=== PATIENT | male | born 1950 | race Caucasian/White ===

== ENCOUNTER 2016-07-15 15:32 | Emergency (ER) | payer MEDICARE, OTHER ==
[2016-07-15] MEDS ORDERED: LIDOCAINE URO-JET JELLY 2% 5 ML KIT URETHRAL ONE (17:28)
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
[2016-07-15 19:52] VITALS: RESP 18
[2016-07-15] MEDS ORDERED: cefTRIAXone 2,000 MG VIAL IM STA (20:50)
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
--- NOTE | 2016-07-15 20:59 | P.PCN ---
Date of Procedure: 07/15/16 Preoperative Diagnosis: Urine retention inability to pass catheter Postoperative Diagnosis: Same secondary to dense distal bulbar urethral stricture Procedure(s) Performed: Ddilation of urethral stricture with filiforms and followers, difficult catheter placement Description of Procedure: The patient is prepped and draped sterilely. I first attempted pass a 16- Italian coud-tip catheter thinking there is going to be a false passage however I meet resistance in the proximal penile urethra and the distal bulbar urethra. I thus passed a 3-Italian spiral filiform through the stricture. I then dilate the stricture from 64-05-Irctrg. The strictures very dense and somewhat long. I attempted to pass a 16 to coud-tip catheter but failed. I then pass a 14-Italian regular catheter with some difficulty but unable to get into the bladder. After remaining placed. Marycarmen discussed with a director of operations home health that it shouldn't be changed for 3-4 weeks. He should keep his follow-up appointment in our office. He will get a shot of gentamicin prior to discharge.
[2016-07-15] MEDS ORDERED: GENTAMICIN 120 MG in SODIUM CHLORIDE 0.9% 100 ML IVPB ONE (21:00)
[2016-07-15 21:15] LABS: Amorphous Sediment,Urine Rare /hpf; Appearance,Urine Cloudy (Clear); Bilirubin,Urine Negative (Negative); Glucose,Urine (UA) Negative (Negative); Ketones,Urine Negative (Negative); Leukocyte Esterase,Urine Large (Negative); Nitrite,Urine Positive (Negative); Particle Count 70206; Protein,Urine 1+ (Negative); RBC,Urine 98 /hpf (0-5); Specific Gravity,Urine 1.009 (1.001-1.035); UA Billing (MACRO vs. MICRO) MICRO; Urobilinogen,Urine <2.0 mg/dL (<2.0); WBC,Urine 6 /hpf (0-5)
[2016-07-15 23:03] VITALS: BP 113/57; PULSE 61; TEMP 97.1
== END 2016-07-15 23:20 | disposition home or self-care (01) ==
LOC: EC 15:32
DX: N35.9 Urethral stricture, unspecified (principal); R33.9 Retention of urine, unspecified; M19.90 Unspecified osteoarthritis, unspecified site; F41.9 Anxiety disorder, unspecified; F32.9 Major depressive disorder, single episode, unspecified; Z88.0 Allergy status to penicillin; G40.909 Epilepsy, unspecified, not intractable, without status epilepticus; Z79.82 Long term (current) use of aspirin; Z87.820 Personal history of traumatic brain injury; Z85.828 Personal history of other malignant neoplasm of skin; Z79.899 Other long term (current) drug therapy; F17.200 Nicotine dependence, unspecified, uncomplicated; Z46.6 Encounter for fitting and adjustment of urinary device
CPT/HCPCS: 51703 ×2; 96365 ×2; 99285 ×2; 81001; 87086; 87077; 87186; J1580

== ENCOUNTER 2016-12-15 21:34 | Emergency (ER) | payer MEDICARE, OTHER ==
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
[2016-12-15 22:54] LABS: Appearance,Urine Turbid (Clear); Bacteria,Urine Many /hpf; Bilirubin,Urine Negative (Negative); Glucose,Urine (UA) Negative (Negative); Ketones,Urine Negative (Negative); Leukocyte Esterase,Urine Large (Negative); Nitrite,Urine Negative (Negative); Particle Count 437380; Protein,Urine 4+ (Negative); RBC,Urine 67 /hpf (0-5); Specific Gravity,Urine 1.014 (1.001-1.035); UA Billing (MACRO vs. MICRO) MICRO; Urobilinogen,Urine <2.0 mg/dL (<2.0); WBC,Urine >182 /hpf (0-5)
[2016-12-15 23:47] VITALS: BP 124/78
[2016-12-16 00:02] VITALS: PULSE 80; RESP 16; TEMP 98
== END 2016-12-16 00:02 | disposition home or self-care (01) ==
LOC: EC 21:34
DX: T83.511A Infection and inflammatory reaction due to indwelling urethral catheter, initial encounter (principal); N39.0 Urinary tract infection, site not specified; M19.90 Unspecified osteoarthritis, unspecified site; G40.909 Epilepsy, unspecified, not intractable, without status epilepticus; F32.9 Major depressive disorder, single episode, unspecified; F17.200 Nicotine dependence, unspecified, uncomplicated; Z85.828 Personal history of other malignant neoplasm of skin; Z88.0 Allergy status to penicillin; Z79.1 Long term (current) use of non-steroidal anti-inflammatories (NSAID); Z79.82 Long term (current) use of aspirin; Z79.899 Other long term (current) drug therapy
CPT/HCPCS: 51702; 81001; 87077; 87086; 87186; 99283

== ENCOUNTER 2017-02-07 09:08 | Day surgery (SDC) | payer MEDICARE, OTHER ==
[2017-01-26 13:08] VITALS: BMI 59.3
[~2017-02-07 09:08] MED LIST: DEXAMETHASONE SOD PHOSPHATE 10 MG/ML 1 ML VIAL IV ONE; GENTAMICIN 120 MG in SODIUM CHLORIDE 0.9% 100 ML IVPB ONE; HYDROmorphone 1 MG/ML 1 ML SYRINGE IVP PRN; LACTATED RINGERS 1,000 ML IV SCH; LIDOCAINE 1% 20 ML VIAL (10MG/ML) FOR IV START INTRADERMA PRN; ONDANSETRON 4 MG/2 ML VIAL IVP ONE; SCOPOLAMINE 1.5MG/72HR PATCH TRANSDERM ONE
[2017-02-07 10:22] VITALS: RESP 16
[2017-02-07] MEDS ORDERED: PHENYLEPHRINE-0.9% NACL SYG 1 MG/10 ML SYRINGE ONE (11:25)
[2017-02-07] MEDS ORDERED: PROPOFOL 10 MG/ML 20 ML VIAL IV ONE (11:25)
[2017-02-07] MEDS ORDERED: MIDAZOLAM 2 MG/2 ML VIAL ONE (11:25)
[2017-02-07] MEDS ORDERED: LIDOCAINE 1% INJ 10MG/ML (20 ML MDV) ONE (11:25)
--- NOTE | 2017-02-07 12:24 | P.OP ---
Date of Procedure: 02/07/17 Preoperative Diagnosis: Postoperative Diagnosis: Chronic urinary retention with catheter difficulties Procedure(s) Performed: Same plus multiple bladder stones Implants: Anesthesia: MASSIMO Surgeon: Tylor Feliciano Estimated Blood Loss (ml): 0 Pathology: other Condition: stable Disposition: PACU Indications for Procedure: The patient is a 66-year-old head injury patient with a chronic indwelling catheter due to a neurogenic bladder. The nursing staff has chronic problems replacing this due to previous catheter placement with the balloon in the prostatic urethra. The catheter doesn't drain well he gets recurrent infections. He comes for a suprapubic tube Operative Findings: Description of Procedure: Note brought to the operating suite he is given a general anesthesia. It is obvious that the catheter is pulled out of the outer. The bladder is distended. I removed the catheter. A large amount of urine drains out. The patient remains in retention. His lithotomy position after successful general anesthesia with a sterile prep and drape. Under direct vision the 22-C[place]ican sheath and Foroblique lenses introduced in the anterior urethra it is normal. The prostatic urethra is dilated from previous balloon dilations of the prostatic urethra. There stone in it. The stone was pushed back into the bladder. The bladder is hypotonic sloppy with chronic cystitis. There are multiple bladder stones that are irrigated out of the bladder. The remaining stones or grasp and broken with the cup biopsy forceps and irrigated out of the bladder. If I then pass the 20-C[place]ican sound, notched and it is tender to the anterior bladder wall. A small incision with a 15 blade is made over the sound and the sound is popped through the anterior bladder wall. An 18-C[place]ican Boss catheter secured to the sound with a 2-0 silk. The catheters pulled back through the bladder into the urethra. I then pass the cystoscope into the urethra and follow the catheter back in the bladder. The balloon is insufflated in the bladder under direct vision. The bladder irrigates nicely. It is secured to the skin with 2 2-0 Vicryl's. Stress the patient awake and returned recovery in good condition. He'll be discharged back to the shelter later today.
[2017-02-07 12:44] VITALS: TEMP 97.1
[2017-02-07 16:06] VITALS: BP 1187/75; PULSE 88
== END 2017-02-07 17:24 ==
LOC: OR 09:08
PROVIDERS: ATTEND Urology
DX: T83.018A Breakdown (mechanical) of other urinary catheter, initial encounter (principal); N31.8 Other neuromuscular dysfunction of bladder; N39.498 Other specified urinary incontinence; N21.0 Calculus in bladder; N31.2 Flaccid neuropathic bladder, not elsewhere classified; N30.20 Other chronic cystitis without hematuria
CPT/HCPCS: 82365; 52310; C2627; J2250; J1100; J2405; J2001; J1580; J2370; J2704

== ENCOUNTER 2017-03-03 10:48 | Emergency (ER) | payer MEDICARE, OTHER ==
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
[2017-03-03 14:27] VITALS: RESP 16
[2017-03-03 14:40] LABS: Appearance,Urine Cloudy (Clear); Bacteria,Urine Moderate /hpf; Bilirubin,Urine Negative (Negative); Glucose,Urine (UA) Negative (Negative); Ketones,Urine Negative (Negative); Leukocyte Esterase,Urine Large (Negative); Mucus,Urine Rare /hpf; Nitrite,Urine Positive (Negative); PH, Urine 7.5 (5.0-8.0); Particle Count 104625; Protein,Urine Trace (Negative); RBC,Urine 37 /hpf (0-5); Specific Gravity,Urine 1.008 (1.001-1.035); Squamous Epithelial Cell,Urine <1 /hpf (0-4); UA Billing (MACRO vs. MICRO) MICRO; Urobilinogen,Urine <2.0 mg/dL (<2.0); WBC,Urine 78 /hpf (0-5)
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
[2017-03-03 15:19] VITALS: BP 117/64; PULSE 66; TEMP 98.6
== END 2017-03-03 16:13 | disposition home or self-care (01) ==
LOC: EC 10:48
DX: T83.098A Other mechanical complication of other urinary catheter, initial encounter (principal); G40.909 Epilepsy, unspecified, not intractable, without status epilepticus; M19.90 Unspecified osteoarthritis, unspecified site; F41.9 Anxiety disorder, unspecified; F32.9 Major depressive disorder, single episode, unspecified; F17.200 Nicotine dependence, unspecified, uncomplicated; Z85.828 Personal history of other malignant neoplasm of skin; Z79.82 Long term (current) use of aspirin; Z79.899 Other long term (current) drug therapy; Z88.0 Allergy status to penicillin; Y84.6 Urinary catheterization as the cause of abnormal reaction of the patient, or of later complication, without mention of misadventure at the time of the procedure
CPT/HCPCS: 51702; 51798; 81001; 99283

== ENCOUNTER 2017-06-22 15:27 | Emergency (ER) | payer MEDICARE, OTHER ==
[2017-06-22 15:58] VITALS: RESP 16
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
[2017-06-22 17:27] LABS: Basophils # (A) 0.1 k/uL (0-0.2); Basophils % (A) 1 %; Eosinophils # (A) 0.4 k/uL (0-0.7); Eosinophils % (A) 5 %; HCT 38.9 % (39.0-53.0); HGB 12.1 gm/dL (13.0-17.5); Lymphocytes % (A) 37 %; MCH 26.4 pg (25.0-35.0); MCHC 31.1 g/dL (31.0-37.0); MCV 84.9 fL (80.0-100.0); Mean Platelet Volume 7.4; Monocytes # (A) 0.3 k/uL (0-1.0); Monocytes % (A) 4 %; Neutrophils # (A) 4.2 k/uL (1.3-7.7); Neutrophils % (A) 51 %; Platelet Count 256 k/uL (150-450); RBC 4.58 m/uL (4.30-5.90); RDW 14.8 % (11.5-15.5); WBC 8.1 k/uL (3.8-10.6)
[2017-06-22 17:35] LABS: Appearance,Urine Clear (Clear); Bilirubin,Urine Negative (Negative); Blood,Urine Moderate (Negative); Color,Urine Yellow; Glucose,Urine (UA) Negative (Negative); Ketones,Urine Negative (Negative); Leukocyte Esterase,Urine Moderate (Negative); Mucus,Urine Rare /hpf; Nitrite,Urine Negative (Negative); PH, Urine 6.5 (5.0-8.0); Protein,Urine Negative (Negative); RBC,Urine 39 /hpf (0-5); Squamous Epithelial Cell,Urine <1 /hpf (0-4); Urobilinogen,Urine <2.0 mg/dL (<2.0); WBC,Urine 7 /hpf (0-5)
[2017-06-22 17:37] LABS: ALT 55 U/L (21-72); AST 32 U/L (17-59); Alkaline Phosphatase 88 U/L (38-126); Anion Gap 8 mmol/L; Blood Urea Nitrogen 20 mg/dL (9-20); Calcium 9.4 mg/dL (8.4-10.2); Carbon Dioxide 23 mmol/L (22-30); Chloride 108 mmol/L (98-107); Glucose 97 mg/dL (74-99); Potassium 4.2 mmol/L (3.5-5.1); Sodium 139 mmol/L (137-145); Total Bilirubin 0.1 mg/dL (0.2-1.3); Total Protein 6.6 g/dL (6.3-8.2)
[2017-06-22 18:14] LABS: Prothrombin Time 9.7 sec (9.0-12.0)
[2017-06-22 18:48] VITALS: BP 131/56; PULSE 70; TEMP 97.5
== END 2017-06-22 18:48 | disposition home or self-care (01) ==
LOC: EC 15:27
DX: R31.9 Hematuria, unspecified (principal); G40.909 Epilepsy, unspecified, not intractable, without status epilepticus; M19.90 Unspecified osteoarthritis, unspecified site; F32.9 Major depressive disorder, single episode, unspecified; F41.9 Anxiety disorder, unspecified; F17.200 Nicotine dependence, unspecified, uncomplicated; Z79.1 Long term (current) use of non-steroidal anti-inflammatories (NSAID); Z79.82 Long term (current) use of aspirin; Z79.899 Other long term (current) drug therapy; Z88.0 Allergy status to penicillin; Z80.51 Family history of malignant neoplasm of kidney
CPT/HCPCS: 36415; 80053; 81001; 83880; 85025; 85610; 85730; 99283

== ENCOUNTER 2017-07-01 23:23 | Emergency (ER) | payer MEDICARE, OTHER ==
[2017-07-01 23:30] VITALS: RESP 18
[2017-07-01] MEDS ORDERED: RX INFO: IV CONTRAST WAS GIVEN 1 EACH MISC MISCELLANE PRN (23:43)
[2017-07-02] LABS: Basophils # (A) 0.1 k/uL (0-0.2); Basophils % (A) 1 %; Eosinophils # (A) 0.5 k/uL (0-0.7); Eosinophils % (A) 5 %; HCT 34.3 % (39.0-53.0); HGB 10.5 gm/dL (13.0-17.5); Lymphocytes % (A) 34 %; MCH 26.2 pg (25.0-35.0); MCHC 30.6 g/dL (31.0-37.0); MCV 85.5 fL (80.0-100.0); Mean Platelet Volume 8.2; Monocytes # (A) 0.5 k/uL (0-1.0); Monocytes % (A) 5 %; Neutrophils # (A) 4.6 k/uL (1.3-7.7); Neutrophils % (A) 52 %; Platelet Count 198 k/uL (150-450); RBC 4.01 m/uL (4.30-5.90); WBC 8.7 k/uL (3.8-10.6)
[2017-07-02 00:10] LABS: Anion Gap 9 mmol/L; Blood Urea Nitrogen 16 mg/dL (9-20); Calcium 8.9 mg/dL (8.4-10.2); Carbon Dioxide 23 mmol/L (22-30); Chloride 109 mmol/L (98-107); Glucose 108 mg/dL (74-99); Sodium 141 mmol/L (137-145)
[2017-07-02 00:11] LABS: Partial Thromboplastin Time 26.8 sec (22.0-30.0); Prothrombin Time 9.6 sec (9.0-12.0)
[2017-07-02 00:18] LABS: Bacteria,Urine Few /hpf; Mucus,Urine Moderate /hpf; RBC,Urine >182 /hpf (0-5); WBC,Urine >182 /hpf (0-5)
--- NOTE | 2017-07-02 00:20 | CT ---
EXAMINATION TYPE: CT abdomen pelvis w con DATE OF EXAM: 07/02/2017 COMPARISON: NONE HISTORY: NO prior, pt poor historian, gross hematuria seen in catheter, IV only CT DLP: 863.10 mGycm Automated exposure control for dose reduction was used. TECHNIQUE: Helical acquisition of images was performed from the lung bases through the pelvis. CONTRAST: Performed without Oral Contrast and with IV Contrast, patient injected with 100 mL of Omnipaque 300. FINDINGS: Lung bases are clear. There is no pleural effusion. Heart size is normal. Liver spleen pancreas gallbladder appear normal. Bile ducts are not dilated. There is no adrenal mass . Kidneys show satisfactory contrast opacification. There is no hydronephrosis. There is no retroperitoneal adenopathy. There is no ascites. There is a suprapubic catheter in the bl adder noted. There is high density around the Boss balloon and this could relate to blood clot in th e urinary bladder. There is no free fluid. I see no intestinal wall thickening. There are no dilated loops. Appendix appears normal. There is a 4.3 cm fusiform lower abdominal aortic aneurysm extending to the common iliac arteries. Th ere is atherosclerotic vascular calcification. There is 30% anterior wedging of L1 vertebral body. There is hypertrophic facet arthropathy and moder ately severe spinal stenosis at L4-5. IMPRESSION: 4.3 CM LOWER ABDOMINAL AORTIC ANEURYSM. 1 CM RIGHT RENAL CORTICAL CYST. NORMAL APPENDIX. NO SIGN OF ACUTE ABDOMEN AND PELVIS. L1 COMPRESSION FRACTURE OF UNCERTAIN AGE. There is moderate L4-5 bony spinal stenosis. There is a suprapubic catheter noted. Bladder is not well evaluated because of lack of contrast. Ther e is relatively high density surrounding the Boss balloon and this could relate to blood clot within the urinary bladder.
[2017-07-02 00:28] LABS: Appearance,Urine Bloody (Clear); Color,Urine Red
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
[2017-07-02 01:04] VITALS: BP 117/67; PULSE 88; TEMP 98.5
== END 2017-07-02 01:27 | disposition home or self-care (01) ==
LOC: EC 23:23
DX: R31.9 Hematuria, unspecified (principal); M19.90 Unspecified osteoarthritis, unspecified site; F41.9 Anxiety disorder, unspecified; F32.9 Major depressive disorder, single episode, unspecified; F17.200 Nicotine dependence, unspecified, uncomplicated; Z86.69 Personal history of other diseases of the nervous system and sense organs; Z85.828 Personal history of other malignant neoplasm of skin; Z79.82 Long term (current) use of aspirin; Z79.1 Long term (current) use of non-steroidal anti-inflammatories (NSAID); Z79.899 Other long term (current) drug therapy; Z88.0 Allergy status to penicillin
CPT/HCPCS: 36415; 80048; 85025; 85610; 85730; 81001; 74177; 99284; Q9967

== ENCOUNTER 2018-02-13 17:33 | Inpatient (IN) | payer OTHER, MEDICARE ==
[2018-02-13] MEDS ORDERED: SODIUM CHLORIDE 0.9% 1,000 ML IV STA (19:13)
[2018-02-13 20:01] LABS: Basophils % (A) 0 %; Eosinophils # (A) 0.3 k/uL (0-0.7); Eosinophils % (A) 1 %; HCT 37.5 % (39.0-53.0); Lymphocytes # (A) 1.2 k/uL (1.0-4.8); Lymphocytes % (A) 5 %; MCH 26.3 pg (25.0-35.0); Mean Platelet Volume 7.3; Monocytes # (A) 0.9 k/uL (0-1.0); Monocytes % (A) 4 %; Neutrophils # (A) 22.7 k/uL (1.3-7.7); Neutrophils % (A) 89 %; Platelet Count 184 k/uL (150-450); RBC 4.57 m/uL (4.30-5.90); RDW 15.2 % (11.5-15.5)
[2018-02-13 20:03] LABS: WBC 25.4 k/uL (3.8-10.6)
--- NOTE | 2018-02-13 20:11 | XR ---
EXAMINATION: XR chest 2V DATE AND TIME: 02/13/2018 7:38 PM CLINICAL INDICATION: abdominal pain TECHNIQUE: PA and lateral COMPARISON: 03/02/2016 FINDINGS: The lungs are clear. The pleural spaces are negative. The cardiac silhouette is mildly enlarged, unchanged. Aorta is tortuous, unchanged. The skeletal structures and soft tissues are negative for acute findings. IMPRESSION: NO ACUTE PROCESS.
[2018-02-13 20:13] LABS: ALT 39 U/L (21-72); AST 24 U/L (17-59); Albumin 3.9 g/dL (3.5-5.0); Alkaline Phosphatase 109 U/L (38-126); Amylase 41 U/L (30-110); Anion Gap 12 mmol/L; Blood Urea Nitrogen 15 mg/dL (9-20); Carbon Dioxide 19 mmol/L (22-30); Chloride 107 mmol/L (98-107); Glucose 119 mg/dL (74-99); Lipase 27 U/L (23-300); Potassium 3.6 mmol/L (3.5-5.1); Sodium 138 mmol/L (137-145); Total Bilirubin 0.6 mg/dL (0.2-1.3); Total Protein 6.7 g/dL (6.3-8.2)
[2018-02-13] MEDS ORDERED: cefTRIAXone 2,000 MG in SODIUM CHLORIDE 0.9% 100 ML IVPB STA (20:17)
[2018-02-13] MEDS ORDERED: VANCOMYCIN IV PER PHARMACY 1 EACH MISC MISCELLANE PRN (20:18)
[2018-02-13] MEDS ORDERED: cefTRIAXone IN SWFI 2,000 MG/20 ML SYRINGE IVP STA (20:20)
[2018-02-13] MEDS ORDERED: VANCOMYCIN 1,750 MG in SODIUM CHLORIDE 0.9% 500 ML IVPB ONE (20:30)
[2018-02-13 20:52] LABS: Appearance,Urine Turbid (Clear); Bacteria,Urine Occasional /hpf; Bilirubin,Urine Negative (Negative); Blood,Urine Negative (Negative); Budding Yeast,Urine Few /hpf; Calcium Oxalate Crystals,Urine Few /hpf; Color,Urine Yellow; Glucose,Urine (UA) Negative (Negative); Ketones,Urine 2+ (Negative); Leukocyte Esterase,Urine Large (Negative); Mucus,Urine Many /hpf; Nitrite,Urine Positive (Negative); PH, Urine 7.5 (5.0-8.0); Protein,Urine 2+ (Negative); RBC,Urine 18 /hpf (0-5); Specific Gravity,Urine 1.018 (1.001-1.035); Squamous Epithelial Cell,Urine 2 /hpf (0-4); Urobilinogen,Urine <2.0 mg/dL (<2.0); WBC,Urine 81 /hpf (0-5)
[2018-02-13] MEDS ORDERED: ONDANSETRON 4 MG/2 ML VIAL IVP PRN (21:20)
[2018-02-13] MEDS ORDERED: ACETAMINOPHEN TAB 325 MG TAB PO PRN ×2 (21:20→21:31)
[2018-02-13] MEDS ORDERED: NALOXONE 0.4 MG/ML 1 ML VIAL IV PRN (21:20)
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
[2018-02-13] MEDS ORDERED: MAGNESIUM HYDROXIDE 2,400 MG/10 ML CUP PO PRN (21:31)
[2018-02-13] MEDS ORDERED: guaiFENesin-DM 100-10MG/5ML 10 ML CUP PO PRN (21:31)
[2018-02-13] MEDS ORDERED: diphenhydrAMINE 25 MG CAP PO PRN (21:31)
--- NOTE | 2018-02-13 22:10 | US ---
EXAMINATION TYPE: US scrotum with doppler. Grayscale and color Doppler Duplex imaging performed of t he scrotum. DATE OF EXAM: 02/13/2018 COMPARISON: NONE CLINICAL HISTORY: Pain. Left testicle swelling and pain. EXAM MEASUREMENTS: TESTICLES: Right Testicle: 4.9 x 1.8 x 3.1 cm Left Testicle: 4.6 x 3.1 x 3.8 cm EPIDIDYMIS HEAD: Right Epididymis: 1.2 x .7 x 1.1 cm Left Epididymis: 2.4 x 3.9 x 3.8 cm Doppler performed to assess for testicular vascularity; good bilateral color flow and waveforms are s een. There is no evidence of testicular torsion. Presence of hydroceles: Yes loculated on the left side. Presence of varicoceles: No Heterogenous left testicle no definite masses seen. Complex loculated hydrocele left side. Enlarged l eft epididymis heterogenous with cyst measuring 2.0 x 2.8 x 3.1 cm. Good color flow seen bilaterally . IMPRESSION: No testicular torsion or mass. There is however abnormal heterogeneous sono density in th e left testicle that could relate to inflammatory process. Left side hydrocele and complex fluid. Enlarged left epididymis could relate to epididymitis.
[2018-02-13 22:59] VITALS: BMI 25.2
[2018-02-14] MEDS: clonazePAM 1 MG TAB PO SCH ×4 (01:10→20:49)
[2018-02-14] MEDS: PALIPERIDONE 3 MG TAB.ER.24 PO SCH ×3 (01:11→20:50)
[2018-02-14] MEDS: TOPIRAMATE 100 MG TAB PO SCH ×4 (01:11→20:50)
[2018-02-14] MEDS: traZODone HCL 50 MG TAB PO SCH ×2 (01:11→20:51)
[2018-02-14 07:38] LABS: Basophils # (A) 0.1 k/uL (0-0.2); Basophils % (A) 0 %; Eosinophils # (A) 0.2 k/uL (0-0.7); Eosinophils % (A) 1 %; HCT 32.5 % (39.0-53.0); HGB 10.3 gm/dL (13.0-17.5); Lymphocytes # (A) 1.2 k/uL (1.0-4.8); Lymphocytes % (A) 5 %; MCHC 31.6 g/dL (31.0-37.0); MCV 82.1 fL (80.0-100.0); Mean Platelet Volume 7.3; Monocytes # (A) 1.2 k/uL (0-1.0); Monocytes % (A) 6 %; Neutrophils # (A) 19.3 k/uL (1.3-7.7); Neutrophils % (A) 87 %; Platelet Count 166 k/uL (150-450); RBC 3.96 m/uL (4.30-5.90); WBC 22.1 k/uL (3.8-10.6)
[2018-02-14] MEDS ORDERED: MELOXICAM 7.5 MG TAB PO SCH (08:00)
[2018-02-14 08:01] LABS: ALT 28 U/L (21-72); AST 19 U/L (17-59); Albumin 2.8 g/dL (3.5-5.0); Alkaline Phosphatase 101 U/L (38-126); Anion Gap 8 mmol/L; Blood Urea Nitrogen 12 mg/dL (9-20); Calcium 8.3 mg/dL (8.4-10.2); Carbon Dioxide 18 mmol/L (22-30); Chloride 113 mmol/L (98-107); Glucose 104 mg/dL (74-99); Potassium 3.9 mmol/L (3.5-5.1); Sodium 139 mmol/L (137-145); Total Bilirubin 0.4 mg/dL (0.2-1.3); Total Protein 5.2 g/dL (6.3-8.2)
[2018-02-14] MEDS ORDERED: VANCOMYCIN 1,750 MG in SODIUM CHLORIDE 0.9% 500 ML IVPB SCH (09:00)
[2018-02-14] MEDS: NICOTINE 21MG/24HR PATCH TRANSDERM SCH (09:34)
[2018-02-14] MEDS: MELOXICAM 7.5 MG TAB PO SCH (09:34)
[2018-02-14] MEDS: PARoxetine 20 MG TAB PO SCH (09:36)
[2018-02-14] MEDS: LORATADINE 10 MG TAB PO SCH (09:36)
[2018-02-14] MEDS: GENTAMICIN 0.1% CREAM 15 GM TUBE TOPICAL SCH (09:37)
[2018-02-14] MEDS: CLOTRIMAZOLE 1% CREAM 15 GM TUBE TOPICAL SCH (09:37)
[2018-02-14] MEDS: SENNOSIDES-DOCUSATE SODIUM 1 EACH TAB PO SCH (09:37)
[2018-02-14] MEDS: ASPIRIN 81 MG PO SCH (09:37)
[2018-02-14] MEDS: BISACODYL 5 MG TABLET.DR PO SCH (09:37)
[2018-02-14] MEDS: LACOSAMIDE 50 MG TABLET PO SCH ×2 (13:42→20:49)
[2018-02-14] MEDS: SODIUM CHLORIDE 0.9% 1,000 ML IV SCH (17:15)
[2018-02-14] MEDS: LORazepam 1 MG TAB PO PRN (17:15)
[2018-02-14] MEDS: cefTRIAXone IN SWFI 1,000 MG/10 ML SYRINGE IVP SCH (17:15)
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
[2018-02-15] MEDS: NICOTINE 21MG/24HR PATCH TRANSDERM SCH (05:29)
[2018-02-15] MEDS: SODIUM CHLORIDE 0.9% 1,000 ML IV SCH ×3 (06:16→13:36)
[2018-02-15 08:38] LABS: MCH 26.3 pg (25.0-35.0); MCHC 32.1 g/dL (31.0-37.0); Mean Platelet Volume 7.4; Platelet Count 197 k/uL (150-450); RBC 3.78 m/uL (4.30-5.90); WBC 17.1 k/uL (3.8-10.6)
[2018-02-15] MEDS: CLOTRIMAZOLE 1% CREAM 15 GM TUBE TOPICAL SCH (08:53)
[2018-02-15] MEDS: GENTAMICIN 0.1% CREAM 15 GM TUBE TOPICAL SCH (08:53)
[2018-02-15] MEDS: PARoxetine 20 MG TAB PO SCH (08:54)
[2018-02-15] MEDS: LORATADINE 10 MG TAB PO SCH (08:54)
[2018-02-15] MEDS: TOPIRAMATE 100 MG TAB PO SCH ×3 (08:54→19:34)
[2018-02-15] MEDS: BISACODYL 5 MG TABLET.DR PO SCH (08:54)
[2018-02-15] MEDS: clonazePAM 1 MG TAB PO SCH ×3 (08:54→19:34)
[2018-02-15] MEDS: SENNOSIDES-DOCUSATE SODIUM 1 EACH TAB PO SCH (08:54)
[2018-02-15] MEDS: ASPIRIN 81 MG PO SCH (08:54)
[2018-02-15] MEDS: LACOSAMIDE 50 MG TABLET PO SCH ×2 (09:22→19:37)
[2018-02-15] MEDS: MELOXICAM 7.5 MG TAB PO SCH (09:22)
[2018-02-15] MEDS: cefTRIAXone IN SWFI 1,000 MG/10 ML SYRINGE IVP SCH (17:16)
[2018-02-15] MEDS: PALIPERIDONE 3 MG TAB.ER.24 PO SCH ×2 (17:16→19:35)
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
[2018-02-15] MEDS: traZODone HCL 50 MG TAB PO SCH (19:34)
[2018-02-15 22:56] VITALS: RESP 16
[2018-02-16 07:29] LABS: HCT 30.9 % (39.0-53.0); HGB 9.9 gm/dL (13.0-17.5); MCH 26.3 pg (25.0-35.0); Mean Platelet Volume 7.3; Platelet Count 219 k/uL (150-450); RBC 3.77 m/uL (4.30-5.90); RDW 15.1 % (11.5-15.5); WBC 13.6 k/uL (3.8-10.6)
[2018-02-16] MEDS: LORATADINE 10 MG TAB PO SCH (08:29)
[2018-02-16] MEDS: PARoxetine 20 MG TAB PO SCH (08:29)
[2018-02-16] MEDS: NICOTINE 21MG/24HR PATCH TRANSDERM SCH (08:29)
[2018-02-16] MEDS: ASPIRIN 81 MG PO SCH (08:29)
[2018-02-16] MEDS: CLOTRIMAZOLE 1% CREAM 15 GM TUBE TOPICAL SCH (08:29)
[2018-02-16] MEDS: MELOXICAM 7.5 MG TAB PO SCH (08:29)
[2018-02-16] MEDS: GENTAMICIN 0.1% CREAM 15 GM TUBE TOPICAL SCH (08:29)
[2018-02-16] MEDS: TOPIRAMATE 100 MG TAB PO SCH ×3 (08:30→19:40)
[2018-02-16] MEDS: BISACODYL 5 MG TABLET.DR PO SCH (08:33)
[2018-02-16] MEDS: LACOSAMIDE 50 MG TABLET PO SCH ×2 (08:33→19:39)
[2018-02-16] MEDS: SENNOSIDES-DOCUSATE SODIUM 1 EACH TAB PO SCH (08:33)
[2018-02-16] MEDS: clonazePAM 1 MG TAB PO SCH ×3 (08:33→19:40)
[2018-02-16] MEDS: SODIUM CHLORIDE 0.9% 1,000 ML IV SCH (13:01)
[2018-02-16] MEDS: cefTRIAXone IN SWFI 1,000 MG/10 ML SYRINGE IVP SCH (17:06)
[2018-02-16] MEDS: PALIPERIDONE 3 MG TAB.ER.24 PO SCH ×2 (17:06→19:41)
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
[2018-02-16] MEDS: LORazepam 1 MG TAB PO PRN (19:39)
[2018-02-16] MEDS: traZODone HCL 50 MG TAB PO SCH (19:41)
[2018-02-17] MEDS: SODIUM CHLORIDE 0.9% 1,000 ML IV SCH ×2 (05:03→15:21)
[2018-02-17 07:36] LABS: HCT 31.4 % (39.0-53.0); HGB 10.1 gm/dL (13.0-17.5); MCH 26.2 pg (25.0-35.0); MCHC 32.1 g/dL (31.0-37.0); MCV 81.5 fL (80.0-100.0); Mean Platelet Volume 6.9; Platelet Count 236 k/uL (150-450); RBC 3.85 m/uL (4.30-5.90); WBC 12.3 k/uL (3.8-10.6)
--- NOTE | 2018-02-17 09:05 | P.PN ---
Subjective Progress Note Date: 02/17/18 Principal diagnosis: Left epididymoorchitis This 67-year-old gentleman was admitted to the hospital with a swollen painful left scrotum. Patient's felt to have a form left testicle and epididymis. He does have a suprapubic catheter. The patient's urine culture results are still pending. The patient has had no fever chills and is back to his usual behavior or renal status. He was lethargic for a few days prior to admission and subsequent admission. His back to his usual alertness. He has had no fever chills while in the hospital. His scrotum is getting better however today there is some area of the top which may feel a little fluctuant though not tender or red. I will have the the urologist to collect that it tomorrow. His white counts getting better. Cultures are pending as mentioned above. He has underlying history of previous head trauma and seizure disorder. No seizures since admission REVIEW OF SYSTEMS: Neuro: Denies any headaches dizziness. Psych: Denies anxiety depression feels oriented. Cardiac: Denies chest pain and angina palpitations. Respiratory: Denies shortness of breath cough. GI: Denies nausea vomiting or abdominal pain. No diarrhea or constipation, no bowel movement yet. : Has a suprapubic catheter draining clear urine Extremities: Denies pain. No edema. Skin: Intact. Constitutional: No fever, chills. , Objective - Vital Signs Vital signs: Vital Signs Temp 98.4 F 02/17/18 05:00 Pulse 68 02/17/18 05:00 Resp 16 02/17/18 05:00 BP 124/60 02/17/18 05:00 Pulse Ox 97 02/17/18 05:00 Intake & Output 02/16/18 02/17/18 02/17/18 18:59 06:59 18:59 Intake Total 450 1190 Output Total 500 Balance -50 1190 Intake: IV 450 600 Sodium Chloride 0.9% 1, 450 600 000 ml @ 75 mls/hr IV . [id number] [facility] Rx#:[id number] Oral 590 Output: Urine 500 Other: Voiding Method Indwelling Catheter Indwelling Catheter PHYSICAL EXAMINATION: Cooperative, at present in no acute distress. HEENT: [Neck supple. No JVD.] Chest: [Clear to auscultation][ percussion.] Cardiac: [Normal S1-S2] [no gallops] [no murmur ]. Abdomen:[ Soft ][bowel sounds present.] Extremities: [No edema] [no tenderness ] Neurologically: Awake and alert oriented to person. Does move his upper extremities and lower extremities with some rigidity which is chronic Scrotum: Decreased swelling of the left scrotum decreased tenderness still fairly indurated epididymis. The top of the scrotum is mildly fluctuant not tender no crepitus. - Labs CBC & Chem 7: 02/17/18 07:11 02/14/18 06:44 Labs: Abnormal Lab Results - Last 24 Hours (Table) 02/17/18 Range/Units 07:11 WBC 12.3 H (3.8-10.6) k/uL RBC 3.85 L (4.30-5.90) m/uL Hgb 10.1 L (13.0-17.5) gm/dL Hct 31.4 L (39.0-53.0) % Microbiology - Last 24 Hours (Table) 02/13/18 17:43 Blood Culture - Preliminary Blood No Growth after 72 hours Assessment and Plan Assessment: ASSESSMENT: 1. Left epididymal orchitis. 2. Status post suprapubic catheter. 3. Seizure disorder. 4. History of head injuries. PLAN: Continue present medical regimen patient seems to be responding well to the antibiotic. Have urology see the patient in the morning. Await cultures from the urine meanwhile continue Rocephin.
[2018-02-17] MEDS: NICOTINE 21MG/24HR PATCH TRANSDERM SCH (09:11)
[2018-02-17] MEDS: clonazePAM 1 MG TAB PO SCH ×3 (09:12→19:51)
[2018-02-17] MEDS: BISACODYL 5 MG TABLET.DR PO SCH (09:12)
[2018-02-17] MEDS: GENTAMICIN 0.1% CREAM 15 GM TUBE TOPICAL SCH (09:12)
[2018-02-17] MEDS: ASPIRIN 81 MG PO SCH (09:12)
[2018-02-17] MEDS: CLOTRIMAZOLE 1% CREAM 15 GM TUBE TOPICAL SCH (09:12)
[2018-02-17] MEDS: PARoxetine 20 MG TAB PO SCH (09:13)
[2018-02-17] MEDS: LACOSAMIDE 50 MG TABLET PO SCH ×2 (09:13→19:50)
[2018-02-17] MEDS: LORATADINE 10 MG TAB PO SCH (09:13)
[2018-02-17] MEDS: TOPIRAMATE 100 MG TAB PO SCH ×3 (09:13→19:51)
[2018-02-17] MEDS: SENNOSIDES-DOCUSATE SODIUM 1 EACH TAB PO SCH (09:13)
[2018-02-17] MEDS: MELOXICAM 7.5 MG TAB PO SCH (09:13)
[2018-02-17] MEDS: cefTRIAXone IN SWFI 1,000 MG/10 ML SYRINGE IVP SCH (17:57)
[2018-02-17] MEDS: PALIPERIDONE 3 MG TAB.ER.24 PO SCH ×2 (17:58→19:51)
[2018-02-17] MEDS: traZODone HCL 50 MG TAB PO SCH (19:51)
[2018-02-18 07:29] VITALS: BP 118/74; PULSE 65; TEMP 97.9
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
[2018-02-18] MEDS: NICOTINE 21MG/24HR PATCH TRANSDERM SCH (09:15)
[2018-02-18] MEDS: clonazePAM 1 MG TAB PO SCH (09:15)
[2018-02-18] MEDS: BISACODYL 5 MG TABLET.DR PO SCH (09:15)
[2018-02-18] MEDS: TOPIRAMATE 100 MG TAB PO SCH (09:15)
[2018-02-18] MEDS: SENNOSIDES-DOCUSATE SODIUM 1 EACH TAB PO SCH (09:15)
[2018-02-18] MEDS: LORATADINE 10 MG TAB PO SCH (09:15)
[2018-02-18] MEDS: PARoxetine 20 MG TAB PO SCH (09:15)
[2018-02-18] MEDS: ASPIRIN 81 MG PO SCH (09:15)
[2018-02-18] MEDS: LACOSAMIDE 50 MG TABLET PO SCH (09:17)
[2018-02-18] MEDS: GENTAMICIN 0.1% CREAM 15 GM TUBE TOPICAL SCH (09:20)
[2018-02-18] MEDS: CLOTRIMAZOLE 1% CREAM 15 GM TUBE TOPICAL SCH (09:20)
== END 2018-02-18 12:01 | disposition home health service (06) | DRG 728 ==
LOC: EC 17:33 → 5ONC 21:31
PROVIDERS: ADMIT Internal Medicine; ATTEND Internal Medicine
DX: N45.3 Epididymo-orchitis (principal); R56.1 Post traumatic seizures; G89.29 Other chronic pain; M25.529 Pain in unspecified elbow; M25.569 Pain in unspecified knee; D64.9 Anemia, unspecified; Z96.0 Presence of urogenital implants; F17.210 Nicotine dependence, cigarettes, uncomplicated; F03.90 Unspecified dementia, unspecified severity, without behavioral disturbance, psychotic disturbance, mood disturbance, and anxiety; M19.90 Unspecified osteoarthritis, unspecified site; I10 Essential (primary) hypertension; R41.3 Other amnesia; J44.9 Chronic obstructive pulmonary disease, unspecified; F32.9 Major depressive disorder, single episode, unspecified; F41.9 Anxiety disorder, unspecified; S06.9X0S Unspecified intracranial injury without loss of consciousness, sequela; Z80.1 Family history of malignant neoplasm of trachea, bronchus and lung; Z80.51 Family history of malignant neoplasm of kidney; Z85.828 Personal history of other malignant neoplasm of skin; Z87.820 Personal history of traumatic brain injury; Z22.39 Carrier of other specified bacterial diseases
CPT/HCPCS: 36415; 71046; 76870; 80053; 81001; 82150; 83690; 85025; 85027; 87040; 87077; 87086; 87186; 93975; 96361; 96365; 96375; 99285

== ENCOUNTER 2019-04-18 09:04 | Emergency (ER) | payer MEDICARE, OTHER ==
[2019-04-18 09:15] VITALS: BP 118/77; PULSE 65; RESP 18; TEMP 97.5
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
== END 2019-04-18 10:10 | disposition home or self-care (01) ==
LOC: EC 09:04
DX: T83.018A Breakdown (mechanical) of other urinary catheter, initial encounter (principal); F03.90 Unspecified dementia, unspecified severity, without behavioral disturbance, psychotic disturbance, mood disturbance, and anxiety; M19.90 Unspecified osteoarthritis, unspecified site; G40.909 Epilepsy, unspecified, not intractable, without status epilepticus; F32.9 Major depressive disorder, single episode, unspecified; F41.9 Anxiety disorder, unspecified; F17.200 Nicotine dependence, unspecified, uncomplicated; Z88.0 Allergy status to penicillin; Z79.1 Long term (current) use of non-steroidal anti-inflammatories (NSAID); Z79.82 Long term (current) use of aspirin; Z79.899 Other long term (current) drug therapy; Z85.828 Personal history of other malignant neoplasm of skin; Z99.3 Dependence on wheelchair; Z80.51 Family history of malignant neoplasm of kidney
CPT/HCPCS: 51702; 99283

== ENCOUNTER 2019-05-08 19:06 | Emergency (ER) | payer MEDICARE, OTHER ==
[2019-05-08 19:14] VITALS: BP 131/81; PULSE 56; RESP 18; TEMP 97.9
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
== END 2019-05-08 19:53 | disposition home or self-care (01) ==
LOC: EC 19:06
DX: T83.89XA Other specified complication of genitourinary prosthetic devices, implants and grafts, initial encounter (principal); F41.9 Anxiety disorder, unspecified; F32.9 Major depressive disorder, single episode, unspecified; F17.200 Nicotine dependence, unspecified, uncomplicated; M19.90 Unspecified osteoarthritis, unspecified site; G40.909 Epilepsy, unspecified, not intractable, without status epilepticus; Z85.828 Personal history of other malignant neoplasm of skin; Z79.82 Long term (current) use of aspirin; Z79.1 Long term (current) use of non-steroidal anti-inflammatories (NSAID); Z79.899 Other long term (current) drug therapy; Z88.0 Allergy status to penicillin
CPT/HCPCS: 51705; 99283

== ENCOUNTER 2019-05-10 09:07 | Emergency (ER) | payer MEDICARE, OTHER ==
[2019-05-10 09:23] VITALS: RESP 16; TEMP 96.9
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
[2019-05-10 10:29] VITALS: BP 120/70; PULSE 64
== END 2019-05-10 10:26 | disposition home or self-care (01) ==
LOC: EC 09:07
DX: Z46.6 Encounter for fitting and adjustment of urinary device (principal); T83.018A Breakdown (mechanical) of other urinary catheter, initial encounter; F41.9 Anxiety disorder, unspecified; F32.9 Major depressive disorder, single episode, unspecified; F03.90 Unspecified dementia, unspecified severity, without behavioral disturbance, psychotic disturbance, mood disturbance, and anxiety; G40.909 Epilepsy, unspecified, not intractable, without status epilepticus; M19.90 Unspecified osteoarthritis, unspecified site; F17.200 Nicotine dependence, unspecified, uncomplicated; Z79.82 Long term (current) use of aspirin; Z79.899 Other long term (current) drug therapy; Z88.0 Allergy status to penicillin; Z85.828 Personal history of other malignant neoplasm of skin; Z99.3 Dependence on wheelchair
CPT/HCPCS: 51702; 99283

== ENCOUNTER 2019-08-17 05:09 | Emergency (ER) | payer MEDICARE, OTHER ==
[2019-08-17 05:17] VITALS: RESP 18; TEMP 98.2
[2019-08-17] MEDS ORDERED: LORazepam 1 MG TAB PO STA (05:32)
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
[2019-08-17 07:45] VITALS: BP 138/79; PULSE 72
== END 2019-08-17 07:37 | disposition home or self-care (01) ==
LOC: EC 05:09
DX: R45.6 Violent behavior (principal); R45.1 Restlessness and agitation; F41.9 Anxiety disorder, unspecified; F32.9 Major depressive disorder, single episode, unspecified; F03.90 Unspecified dementia, unspecified severity, without behavioral disturbance, psychotic disturbance, mood disturbance, and anxiety; G40.909 Epilepsy, unspecified, not intractable, without status epilepticus; M19.90 Unspecified osteoarthritis, unspecified site; F17.200 Nicotine dependence, unspecified, uncomplicated; Z79.1 Long term (current) use of non-steroidal anti-inflammatories (NSAID); Z79.82 Long term (current) use of aspirin; Z79.899 Other long term (current) drug therapy; Z87.820 Personal history of traumatic brain injury; Z88.0 Allergy status to penicillin; Z85.828 Personal history of other malignant neoplasm of skin; Z99.89 Dependence on other enabling machines and devices; Z98.890 Other specified postprocedural states
CPT/HCPCS: 99284

== ENCOUNTER 2019-08-19 04:21 | Inpatient (IN) | payer MEDICARE, OTHER ==
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
[2019-08-19 05:37] LABS: Basophils # (A) 0.1 k/uL (0-0.2); Basophils % (A) 1 %; Eosinophils # (A) 0.4 k/uL (0-0.7); Eosinophils % (A) 5 %; HCT 39.1 % (39.0-53.0); HGB 12.2 gm/dL (13.0-17.5); Lymphocytes # (A) 2.8 k/uL (1.0-4.8); Lymphocytes % (A) 32 %; MCH 26.4 pg (25.0-35.0); MCHC 31.2 g/dL (31.0-37.0); MCV 84.6 fL (80.0-100.0); Mean Platelet Volume 8.1; Monocytes # (A) 0.5 k/uL (0-1.0); Monocytes % (A) 6 %; Neutrophils # (A) 4.9 k/uL (1.3-7.7); Neutrophils % (A) 55 %; Platelet Count 219 k/uL (150-450); RBC 4.63 m/uL (4.30-5.90); RDW 13.9 % (11.5-15.5); WBC 8.8 k/uL (3.8-10.6)
[2019-08-19 05:45] LABS: African American GFR (CKD) >90 (>60 ml/min/1.73 sqM); Alcohol <10 mg/dL; Anion Gap 4 mmol/L; Blood Urea Nitrogen 18 mg/dL (9-20); Carbon Dioxide 30 mmol/L (22-30); Chloride 104 mmol/L (98-107); Glucose 100 mg/dL (74-99); Non-African American GFR(CKD) >90 (>60 ml/min/1.73 sqM); Potassium 4.1 mmol/L (3.5-5.1); Sodium 138 mmol/L (137-145)
[2019-08-19] MEDS ORDERED: LORazepam 2 MG/ML INJ IV STA (11:00)
[2019-08-19 15:19] LABS: Appearance,Urine Turbid (Clear); Bacteria,Urine Rare /hpf; Bilirubin,Urine Negative (Negative); Blood,Urine Trace (Negative); Color,Urine Light Red; Glucose,Urine (UA) Negative (Negative); Ketones,Urine Negative (Negative); Leukocyte Esterase,Urine Large (Negative); Mucus,Urine Rare /hpf; Nitrite,Urine Positive (Negative); Protein,Urine 1+ (Negative); RBC,Urine 16 /hpf (0-5); Specific Gravity,Urine 1.018 (1.001-1.035); Squamous Epithelial Cell,Urine <1 /hpf (0-4); Urobilinogen,Urine <2.0 mg/dL (<2.0); WBC,Urine 47 /hpf (0-5)
[2019-08-19 15:25] LABS: Amphetamine Screen,Urine Not Detected (NotDetected); Barbiturate Screen,Urine Not Detected (NotDetected); Benzodiazepines Screen,Urine Detected (NotDetected); Cocaine Screen,Urine Not Detected (NotDetected); Methadone Screen, Urine Not Detected (NotDetected); Opiate Screen,Urine Not Detected (NotDetected); Oxycodone Screen, Urine Not Detected (NotDetected); Phencyclidine Screen,Urine Not Detected (NotDetected); Tricyclic Antidepressant,Urine Not Detected (NotDetected); Urn Cannabinoid Scrn Not Detected (NotDetected)
[2019-08-19] MEDS ORDERED: LEVOFLOXACIN 750 MG TAB PO STA (15:35)
[2019-08-19] MEDS ORDERED: NICOTINE 21MG/24HR PATCH TRANSDERM STA (15:44)
[2019-08-19] MEDS ORDERED: PALIPERIDONE 3 MG TAB.ER.24 PO SCH (17:00)
[2019-08-19] MEDS ORDERED: SODIUM CHLORIDE 0.9% 1,000 ML IV ONE (18:03)
[2019-08-19] MEDS: LORazepam 1 MG TAB PO PRN (18:31)
[2019-08-19] MEDS: traZODone HCL 50 MG TAB PO SCH (18:55)
[2019-08-19] MEDS: TOPIRAMATE 100 MG TAB PO SCH (18:55)
[2019-08-19] MEDS ORDERED: PALIPERIDONE 1.5 MG PO SCH (20:00)
[2019-08-19] MEDS ORDERED: MAGNESIUM HYDROXIDE 2,400 MG/10 ML CUP PO PRN (20:23)
[2019-08-19] MEDS ORDERED: ACETAMINOPHEN TAB 325 MG TAB PO PRN (20:23)
[2019-08-19] MEDS: LACOSAMIDE 50 MG TABLET PO SCH (21:26)
[2019-08-19] MEDS: clonazePAM 1 MG TAB PO SCH (21:26)
[2019-08-20] MEDS ORDERED: LORazepam 2 MG/ML INJ IV STA (01:22)
[2019-08-20] MEDS ORDERED: LORazepam 2 MG/ML INJ ONE (01:25)
[2019-08-20] MEDS: risperiDONE 0.5 MG TAB PO SCH ×3 (01:38→08:21)
[2019-08-20] MEDS: LORazepam 1 MG TAB PO PRN ×2 (05:03→08:18)
--- NOTE | 2019-08-20 07:04 | ED ---
Medical Decision Making - Lab Data Result diagrams: 08/19/19 05:19 08/19/19 05:19 Lab Results 08/19/19 08/19/19 08/19/19 Range/Units 05:19 05:19 14:55 WBC 8.8 (3.8-10.6) k/uL RBC 4.63 (4.30-5.90) m/uL Hgb 12.2 L (13.0-17.5) gm/dL Hct 39.1 (39.0-53.0) % MCV 84.6 (80.0-100.0) fL MCH 26.4 (25.0-35.0) pg MCHC 31.2 (31.0-37.0) g/dL RDW 13.9 (11.5-15.5) % Plt Count 219 (150-450) k/uL Neutrophils % 55 % Lymphocytes % 32 % Monocytes % 6 % Eosinophils % 5 % Basophils % 1 % Neutrophils # 4.9 (1.3-7.7) k/uL Lymphocytes # 2.8 (1.0-4.8) k/uL Monocytes # 0.5 (0-1.0) k/uL Eosinophils # 0.4 (0-0.7) k/uL Basophils # 0.1 (0-0.2) k/uL Sodium 138 (137-145) mmol/L Potassium 4.1 (3.5-5.1) mmol/L Chloride 104 (98-107) mmol/L Carbon Dioxide 30 (22-30) mmol/L Anion Gap 4 mmol/L BUN 18 (9-20) mg/dL Creatinine 0.73 (0.66-1.25) mg/dL Est GFR (CKD-EPI)AfAm >90 (>60 ml/min/1.73 sqM) Est GFR (CKD-EPI)NonAf >90 (>60 ml/min/1.73 sqM) Glucose 100 H (74-99) mg/dL Calcium 9.0 (8.4-10.2) mg/dL Urine Color Light Red Urine Appearance Turbid (Clear) Urine pH 8.0 (5.0-8.0) Ur Specific [place] 1.018 (1.001-1.035) Urine Protein 1+ H (Negative) Urine Glucose (UA) Negative (Negative) Urine Ketones Negative (Negative) Urine Blood Trace H (Negative) Urine Nitrite Positive (Negative) Urine Bilirubin Negative (Negative) Urine Urobilinogen <2.0 (<2.0) mg/dL Ur Leukocyte Esterase Large H (Negative) Urine RBC 16 H (0-5) /hpf Urine WBC 47 H (0-5) /hpf Urine WBC Clumps Few H (None) /hpf Ur Squamous Epith Cells <1 (0-4) /hpf Urine Bacteria Rare H (None) /hpf Urine Mucus Rare H (None) /hpf Urine Opiates Screen Not Detected (NotDetected) Ur Oxycodone Screen Not Detected (NotDetected) Urine Methadone Screen Not Detected (NotDetected) Ur Propoxyphene Screen Not Detected (NotDetected) Ur Barbiturates Screen Not Detected (NotDetected) U Tricyclic Antidepress Not Detected (NotDetected) Ur Phencyclidine Scrn Not Detected (NotDetected) Ur Amphetamines Screen Not Detected (NotDetected) U Methamphetamines Scrn Not Detected (NotDetected) U Benzodiazepines Scrn Detected H (NotDetected) Urine Cocaine Screen Not Detected (NotDetected) U Marijuana (THC) Screen Not Detected (NotDetected) Serum Alcohol <10 mg/dL Disposition Clinical Impression: Aggressive behavior, TBI (traumatic brain injury), UTI (urinary tract infection) Disposition: ADMITTED IP TO THIS [facility] Condition: Fair Procedures - Restraint - Face to Face Restraint Occurrence 2 Patient's Immediate Situation: Endangers self safety, Endangers others' safety, Endangers staff safety Patient's Reaction to the Intervention: Aggressive, Combative, Resistive to care Patient's Medical & Behavioral Condition: Follows directions, Confused, Agitated Need to Continue or Terminate Restraint or Seclusion: Continue Face to Face Eval of Restraint Date: 08/19/19 Face to Face Eval of Restraint Time: 15:35
[2019-08-20] MEDS: FERROUS SULFATE 325 MG TAB PO SCH (07:15)
[2019-08-20] MEDS: clonazePAM 1 MG TAB PO SCH ×3 (07:15→21:11)
[2019-08-20] MEDS: TOPIRAMATE 100 MG TAB PO SCH ×3 (07:15→21:12)
[2019-08-20] MEDS: ATORVASTATIN 20 MG TAB PO SCH (07:15)
[2019-08-20] MEDS: ASPIRIN 81 MG PO SCH (07:15)
[2019-08-20] MEDS: BISACODYL 5 MG TABLET.DR PO SCH (07:15)
[2019-08-20] MEDS: LORATADINE 10 MG TAB PO SCH (08:18)
[2019-08-20] MEDS: LACOSAMIDE 50 MG TABLET PO SCH ×2 (08:18→21:11)
[2019-08-20] MEDS: NICOTINE 14MG/24HR PATCH TRANSDERM SCH (08:18)
[2019-08-20] MEDS: PARoxetine 20 MG TAB PO SCH (08:18)
[2019-08-20] MEDS ORDERED: HALOPERIDOL LACTATE 5 MG/ML 1 ML VIAL IM PRN ×2 (08:48→14:34)
--- NOTE | 2019-08-20 09:12 | P.MHFACE ---
Face to Face Restrain/Seclus - Evaluation Patient's Immediate Situation: Endangers self safety, Endangers others' safety, Endangers staff safety, Violent behavior Patient's Reaction to the Intervention: Uncooperative, Hostile, Aggressive, Combative, Resistive to care Patient's Medical & Behavioral Condition: Awake, Follows directions, Confused, Agitated Need to Continue or Terminate Restraint or Seclusion: Continue
[2019-08-20] MEDS: CLOTRIMAZOLE 1% CREAM 15 GM TUBE TOPICAL SCH (09:25)
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
[2019-08-20] MEDS: SODIUM CHLORIDE 0.9% 1,000 ML IV SCH ×2 (10:16→21:25)
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
[2019-08-20] MEDS ORDERED: PALIPERIDONE 1.5 MG PO SCH (20:00)
[2019-08-20] MEDS: traZODone HCL 50 MG TAB PO SCH (21:11)
[2019-08-20] MEDS: PALIPERIDONE 3 MG TAB.ER.24 PO SCH (21:15)
[2019-08-20] MEDS: DIVALPROEX ER 250 MG TAB.ER.24H PO SCH (21:26)
[2019-08-21] MEDS: SODIUM CHLORIDE 0.9% 1,000 ML IV SCH (02:28)
[2019-08-21 08:32] LABS: Basophils # (A) 0.1 k/uL (0-0.2); Basophils % (A) 1 %; Eosinophils # (A) 0.4 k/uL (0-0.7); Eosinophils % (A) 5 %; HCT 37.1 % (39.0-53.0); HGB 11.5 gm/dL (13.0-17.5); Lymphocytes # (A) 2.1 k/uL (1.0-4.8); Lymphocytes % (A) 28 %; MCH 26.7 pg (25.0-35.0); MCHC 30.9 g/dL (31.0-37.0); MCV 86.3 fL (80.0-100.0); Mean Platelet Volume 8.2; Monocytes # (A) 0.4 k/uL (0-1.0); Monocytes % (A) 5 %; Neutrophils # (A) 4.5 k/uL (1.3-7.7); Neutrophils % (A) 60 %; Platelet Count 180 k/uL (150-450); RBC 4.29 m/uL (4.30-5.90); WBC 7.5 k/uL (3.8-10.6)
[2019-08-21 08:37] VITALS: RESP 16
[2019-08-21 08:49] LABS: ALT 20 U/L (4-49); AST 30 U/L (17-59); African American GFR (CKD) >90 (>60 ml/min/1.73 sqM); Albumin 3.2 g/dL (3.5-5.0); Alkaline Phosphatase 80 U/L (38-126); Anion Gap 7 mmol/L; Blood Urea Nitrogen 12 mg/dL (9-20); Calcium 8.4 mg/dL (8.4-10.2); Carbon Dioxide 20 mmol/L (22-30); Chloride 114 mmol/L (98-107); Glucose 99 mg/dL (74-99); Non-African American GFR(CKD) 85 (>60 ml/min/1.73 sqM); Potassium 4.2 mmol/L (3.5-5.1); Sodium 141 mmol/L (137-145); Total Bilirubin 0.2 mg/dL (0.2-1.3); Total Protein 5.5 g/dL (6.3-8.2)
[2019-08-21] MEDS: LORATADINE 10 MG TAB PO SCH (09:02)
[2019-08-21] MEDS: clonazePAM 1 MG TAB PO SCH ×3 (09:02→19:06)
[2019-08-21] MEDS: TOPIRAMATE 100 MG TAB PO SCH ×3 (09:02→20:20)
[2019-08-21] MEDS: BISACODYL 5 MG TABLET.DR PO SCH (09:03)
[2019-08-21] MEDS: LACOSAMIDE 50 MG TABLET PO SCH ×2 (09:03→21:48)
[2019-08-21] MEDS: ASPIRIN 81 MG PO SCH (09:03)
[2019-08-21] MEDS: PARoxetine 20 MG TAB PO SCH (09:03)
[2019-08-21] MEDS: FERROUS SULFATE 325 MG TAB PO SCH (09:04)
[2019-08-21] MEDS: DIVALPROEX ER 250 MG TAB.ER.24H PO SCH (09:04)
[2019-08-21] MEDS: NICOTINE 14MG/24HR PATCH TRANSDERM SCH (09:04)
[2019-08-21] MEDS: ATORVASTATIN 20 MG TAB PO SCH (09:04)
[2019-08-21] MEDS: PALIPERIDONE 3 MG TAB.ER.24 PO SCH ×2 (09:05→21:48)
[2019-08-21] MEDS: CLOTRIMAZOLE 1% CREAM 15 GM TUBE TOPICAL SCH (09:06)
[2019-08-21 13:38] LABS: Appearance,Urine Clear (Clear); Bilirubin,Urine Negative (Negative); Blood,Urine Negative (Negative); Color,Urine Colorless; Glucose,Urine (UA) Negative (Negative); Ketones,Urine Negative (Negative); Leukocyte Esterase,Urine Moderate (Negative); Mucus,Urine Rare /hpf; Nitrite,Urine Negative (Negative); PH, Urine 7.5 (5.0-8.0); Protein,Urine Negative (Negative); RBC,Urine 1 /hpf (0-5); Specific Gravity,Urine 1.005 (1.001-1.035); Squamous Epithelial Cell,Urine 3 /hpf (0-4); Urobilinogen,Urine <2.0 mg/dL (<2.0); WBC,Urine 3 /hpf (0-5)
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
--- NOTE | 2019-08-21 14:59 | P.PN ---
Progress Note - Text Progress Note Date: 08/21/19 Psychiatric progress note: Interval History: Patient was seen at the bedside today for follow-up regarding agitation/irritability. Patient had a one-to-one sitter at the bedside. Patient's nurse states that patient has been taking his medications and has been less irritable today and doing overall better and not showing significant signs of agitation. Nurse claims that she had a difficult time assisting patient to the bathroom as patient was reluctant to get help as he is a fall risk and was somewhat irritable regarding this incident. Patient was seen more awake today and watching TV in his bed. Patient continues to be concrete and have poverty of content/speech. Patient demonstrated less irritability today and was more cooperative and followed most commands. He denied any overnight events and claims that he is taking his medications. At this time patient denies any suicidal or homical ideations, intent or plan. Patient denies any auditory, visual hallucinations and denies any paranoia or delusions. Patient denies any side effects from the medications and has been compliant with meds. Mental Status Exam: General Appearance: Patient appears to be stated age is lethargic and less irritable today. He appears to have improving hygiene and grooming wearing hospital gown with poor eye contact. Patient is slouched over on his bed sitting up. Behavior: Patient is calmly sitting in bed without any agitated behavior. Less irritable. Speech: Patient's speech is fluent and nonpressured. Soft tone. Mood/Affect: Patient reports their mood is "ok", affect is congruent and constricted. Suicidality/Homicidality: Patient denies having any suicidal or homicidal ideation intent or plan. Perceptions: Patient denies any visual hallucinations and denies any auditory hallucinations Though content/process: poverty of content/speech. [place]. Memory and concentration: AOX1, Poor attention span Judgment and insight: Limited. Assessment Mood disorder unspecified History of dementia History of traumatic brain injury Nicotine dependence Plan: -At this time patient DOES NOT meet criteria for inpatient psychiatric admission. -Patient DOES NOT have decision making capacity at this time and is unable to reason through and communicate/appreciate the risks, benefits and alternatives to treatment. -Delirium precautions recommended with patient including - avoiding use of narcotics and PACKAGING ASSEMBLER sedatives, limit anticholinergic medications when possible, frequent re-orientation, minimize use of restraints, open window shades during the day and close them at night -Would recommend the following medication changes/additions: Continue with Haldol when necessary for agitation and acute psychosis. Decreased Klonopin from 2 mg to 1 mg daily at bedtime. Continue with paliperidone to 3 mg twice a day for aggression/irritability. Increased Depakote 750 mg nightly for mood stabilization. Can continue with Topamax 200 mg 3 times a day, trazodone 50 mg daily at bedtime, Paxil 20 mg daily for mood. -Will continue to follow along during patient's hospitalization. Would encourage caregivers or family to visit patient and to assess whether patient is approaching his baseline. We'll likely sign off on patient tomorrow and patient will be returning back to the long-term care facility.
[2019-08-21] MEDS ORDERED: clonazePAM 1 MG TAB PO SCH (20:00)
[2019-08-21] MEDS: traZODone HCL 50 MG TAB PO SCH (20:20)
[2019-08-21 20:21] VITALS: BP 104/65; PULSE 55; TEMP 97.9
[2019-08-21] MEDS ORDERED: DIVALPROEX ER 250 MG TAB.ER.24H PO SCH (21:00)
[2019-08-22] MEDS: SODIUM CHLORIDE 0.9% 1,000 ML IV SCH ×2 (04:17→06:13)
[2019-08-22] MEDS: ASPIRIN 81 MG PO SCH (08:35)
[2019-08-22] MEDS: FERROUS SULFATE 325 MG TAB PO SCH (08:36)
[2019-08-22] MEDS: TOPIRAMATE 100 MG TAB PO SCH (08:36)
[2019-08-22] MEDS: ATORVASTATIN 20 MG TAB PO SCH (08:36)
[2019-08-22] MEDS: LACOSAMIDE 50 MG TABLET PO SCH (08:36)
[2019-08-22] MEDS: LORATADINE 10 MG TAB PO SCH (08:36)
[2019-08-22] MEDS: CLOTRIMAZOLE 1% CREAM 15 GM TUBE TOPICAL SCH ×2 (08:36→09:34)
[2019-08-22] MEDS: PARoxetine 20 MG TAB PO SCH (08:36)
[2019-08-22] MEDS: BISACODYL 5 MG TABLET.DR PO SCH (08:36)
[2019-08-22] MEDS: PALIPERIDONE 3 MG TAB.ER.24 PO SCH (08:37)
[2019-08-22] MEDS: clonazePAM 1 MG TAB PO SCH (08:38)
[2019-08-22] MEDS: NICOTINE 14MG/24HR PATCH TRANSDERM SCH (08:38)
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
== END 2019-08-22 11:43 | disposition home or self-care (01) | DRG 897 ==
LOC: EC 04:21 → 4SSUR 18:03
PROVIDERS: ADMIT Internal Medicine Geriatric Medicine; ATTEND Internal Medicine Geriatric Medicine
DX: F19.931 Other psychoactive substance use, unspecified with withdrawal delirium (principal); F02.81 Dementia in other diseases classified elsewhere, unspecified severity, with behavioral disturbance; N39.0 Urinary tract infection, site not specified; T83.510A Infection and inflammatory reaction due to cystostomy catheter, initial encounter; F39 Unspecified mood [affective] disorder; E78.5 Hyperlipidemia, unspecified; F17.200 Nicotine dependence, unspecified, uncomplicated; F32.9 Major depressive disorder, single episode, unspecified; F41.9 Anxiety disorder, unspecified; G40.909 Epilepsy, unspecified, not intractable, without status epilepticus; M19.90 Unspecified osteoarthritis, unspecified site; Z79.1 Long term (current) use of non-steroidal anti-inflammatories (NSAID); Z79.82 Long term (current) use of aspirin; Z79.899 Other long term (current) drug therapy; Z85.828 Personal history of other malignant neoplasm of skin; Z87.820 Personal history of traumatic brain injury; Z87.828 Personal history of other (healed) physical injury and trauma; Z91.81 History of falling; Z88.0 Allergy status to penicillin; Z80.1 Family history of malignant neoplasm of trachea, bronchus and lung; Z80.51 Family history of malignant neoplasm of kidney; Y84.6 Urinary catheterization as the cause of abnormal reaction of the patient, or of later complication, without mention of misadventure at the time of the procedure
CPT/HCPCS: 36415; 80048; 80053; 80306; 80320; 81001; 85025; 96365; 96375; 99285

== ENCOUNTER 2019-12-08 13:54 | Inpatient (IN) | payer OTHER, MEDICARE ==
[2019-12-08 14:44] LABS: Glucose,Whole Blood 103 mg/dL (75-99)
[2019-12-08] MEDS ORDERED: SODIUM CHLORIDE 0.9% 1,000 ML IV STA (14:52)
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
[2019-12-08 15:05] LABS: Basophils # (A) 0.1 k/uL (0-0.2); Basophils % (A) 1 %; Eosinophils # (A) 0.5 k/uL (0-0.7); Eosinophils % (A) 6 %; HCT 38.4 % (39.0-53.0); HGB 12.2 gm/dL (13.0-17.5); Lymphocytes # (A) 2.1 k/uL (1.0-4.8); Lymphocytes % (A) 26 %; MCH 27.1 pg (25.0-35.0); MCHC 31.8 g/dL (31.0-37.0); MCV 85.3 fL (80.0-100.0); Mean Platelet Volume 7.6; Monocytes # (A) 0.5 k/uL (0-1.0); Monocytes % (A) 6 %; Neutrophils % (A) 60 %; Platelet Count 227 k/uL (150-450); RDW 14.6 % (11.5-15.5); WBC 8.3 k/uL (3.8-10.6)
[2019-12-08 15:08] LABS: ALT 13 U/L (4-49); AST 19 U/L (17-59); African American GFR (CKD) >90 (>60 ml/min/1.73 sqM); Albumin 3.6 g/dL (3.5-5.0); Alkaline Phosphatase 88 U/L (38-126); Anion Gap 6 mmol/L; Blood Urea Nitrogen 15 mg/dL (9-20); Calcium 8.8 mg/dL (8.4-10.2); Carbon Dioxide 21 mmol/L (22-30); Chloride 113 mmol/L (98-107); Glucose 96 mg/dL (74-99); Magnesium 2.1 mg/dL (1.6-2.3); Non-African American GFR(CKD) 90 (>60 ml/min/1.73 sqM); Potassium 4.1 mmol/L (3.5-5.1); Sodium 140 mmol/L (137-145); Total Bilirubin 0.3 mg/dL (0.2-1.3); Total Protein 6.3 g/dL (6.3-8.2)
[2019-12-08 15:13] LABS: INR 0.9 (<1.2); Partial Thromboplastin Time 26.4 sec (22.0-30.0); Prothrombin Time 9.7 sec (9.0-12.0)
--- NOTE | 2019-12-08 15:28 | XR ---
EXAMINATION TYPE: XR chest 2V DATE OF EXAM: 12/08/2019 COMPARISON: 02/13/2018 HISTORY: 69-year-old male with weakness TECHNIQUE: AP and lateral views FINDINGS: Heart normal size. Aorta and pulmonary vasculature within normal limits. Mild interstitial prominence is unchanged. Mild hyperinflation. No consolidation or pleural effusion seen. Some focal nodularity in the peripheral left midlung. IMPRESSION: 1. Chronic changes, possible underlying COPD. No acute process identified. 2. Focal peripheral left midlung nodularity could represent summation artifact. Nonemergent follow-up contrast enhanced CT chest recommended to exclude underlying pulmonary nodule.
[2019-12-08 15:35] LABS: RBC,Urine >182 /hpf (0-5); WBC,Urine >182 /hpf (0-5)
[2019-12-08 15:38] LABS: Appearance,Urine Bloody (Clear); Color,Urine Dark Red
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
[2019-12-08] MEDS ORDERED: NALOXONE 0.4 MG/ML 1 ML VIAL IV PRN (15:50)
[2019-12-08] MEDS ORDERED: cefTRIAXone IN SWFI 1,000 MG/10 ML SYRINGE IVP STA (15:50)
[2019-12-08] MEDS: SODIUM CHLORIDE 0.9% 1,000 ML IV SCH (17:21)
[2019-12-08] MEDS: LORazepam 2 MG/ML INJ IV PRN (18:40)
[2019-12-08] MEDS ORDERED: guaiFENesin-DM 100-10MG/5ML 10 ML CUP PO PRN (21:23)
[2019-12-08] MEDS ORDERED: ACETAMINOPHEN TAB 325 MG TAB PO PRN (21:23)
[2019-12-08] MEDS ORDERED: MAGNESIUM HYDROXIDE 2,400 MG/10 ML CUP PO PRN (21:23)
[2019-12-09] MEDS: NICOTINE 14MG/24HR PATCH TRANSDERM SCH ×2 (01:24→07:47)
[2019-12-09] MEDS: SODIUM CHLORIDE 0.9% 1,000 ML IV SCH ×4 (01:25→19:57)
--- NOTE | 2019-12-09 02:26 | CONS ---
CONSULTATION DATE OF SERVICE: 12/08/2019 REASON FOR CONSULTATION: Urinary tract infection. HISTORY OF PRESENT ILLNESS: The patient is a 69-year-old male with a past medical history significant for urinary outflow obstruction for which the patient did have a suprapubic catheter that is usually changed on an average of 2-1/2 weeks as per the caregiver who was present at the bedside. The patient has been brought into the ER for evaluation of decreased responsiveness, weakness and the patient's symptoms have been getting worse for the last few days to a week. The patient also noticed to have blood in his catheter bag, that has been new compared to yesterday. There is no clear history of any nausea, vomiting, or any high-grade fever. With these symptoms, the patient has been brought to the ER. On arrival to the ER, the patient has been afebrile. The patient did have CT of the brain that was negative for any bleed. White count was normal. Urine was positive, bloody, with more than 182 WBCs. The patient did have a chest x-ray that was reported negative for any acute infiltrate. The patient has been started on Rocephin and admitted to the hospital. Infectious Disease was consulted for further management of antibiotic therapy. The patient is currently lethargic though arousable. He did answer some simple questions and denied any symptoms when asked specifically for any headache, chest pain, shortness of breath, cough, abdominal pain or any diarrhea. REVIEW OF SYSTEMS: Positive points have been mentioned in HPI. Rest of systems negative. PAST MEDICAL HISTORY: Significant for urine outflow obstruction requiring a suprapubic catheter, history of dementia, osteoarthritis, seizure disorder, traumatic brain injury. PAST SURGICAL HISTORY: Tonsillectomy, bilateral leg surgery, left arm surgery. PAST PSYCHOLOGICAL HISTORY: Anxiety, depression. SOCIAL HISTORY: Current every day smoker. No drinking or drug use. FAMILY HISTORY: Father with history of renal cancer. Mother with history of lung cancer. ALLERGIES: Allergies to PENICILLIN, however, has tolerated Rocephin without any problem. MEDICATIONS: Medications include the patient is currently on Tylenol, aspirin, Lipitor, Dulcolax, Rocephin 1 gram daily, Klonopin, Lotrimin cream, Depakote, iron sulfate, Robitussin, Vimpat, Claritin, Ativan, Milk of Magnesia, nicotine patch. PHYSICAL EXAMINATION: Blood pressure is 99/73 with a pulse of 57, temperature 98.9. He is 98% on room air. General description is an elderly male lying in bed in no distress. No tachypnea or accessory muscle of respiration use. HEENT: Examination shows slight pallor. No scleral icterus. Oral mucous membrane is dry. No pharyngeal erythema or thrush. NECK: Trachea central. No thyromegaly. LUNGS: Unlabored breathing, clear to auscultation anteriorly. No wheeze or crackle. HEART: S1, S2. Regular rate and rhythm. ABDOMEN: Soft, no tenderness. No guarding. No rigidity. EXTREMITIES: No edema of feet. GENITOURINARY: The patient did have a suprapubic catheter with significant hematuria. No purulence around the suprapubic catheter site. NEUROLOGICALLY: The patient is lethargic, oriented to himself. No nuchal rigidity. LABS: Hemoglobin is 12.2, white count is 8.3. BUN of 15, creatinine 0.86. Urine has been positive. DIAGNOSTIC IMPRESSION AND PLAN: 1. Patient presented to hospital with generalized weakness, hematuria, which is likely multifactorial with possible component of catheter urinary tract infection likely from enteric gram-negative pathogen with some of the hematuria could be related to the trauma. 2. Patient with PENICILLIN allergy that will limit the number of antibiotics safe to use; however, has tolerated Rocephin without any problem. PLAN: 1. Rocephin 1 gram IV piggyback . 2. Gentle IV fluid. 3. We will follow on his clinical condition and culture to further adjust medication if needed. Thank you for this consultation. Will follow this patient along with you. MMODL / IJN: [id number] /
[2019-12-09] MEDS: ASPIRIN 81 MG PO SCH (07:47)
[2019-12-09] MEDS: TOPIRAMATE 100 MG TAB PO SCH ×3 (07:47→19:48)
[2019-12-09] MEDS: PALIPERIDONE 3 MG TAB.ER.24 PO SCH ×2 (07:47→19:51)
[2019-12-09] MEDS: PARoxetine 20 MG TAB PO SCH (07:47)
[2019-12-09] MEDS: ATORVASTATIN 20 MG TAB PO SCH (07:47)
[2019-12-09] MEDS: LACOSAMIDE 50 MG TABLET PO SCH ×2 (07:47→19:48)
[2019-12-09] MEDS: SENNOSIDES-DOCUSATE SODIUM 1 EACH TAB PO SCH (07:47)
[2019-12-09] MEDS: clonazePAM 1 MG TAB PO SCH ×4 (07:47→19:49)
[2019-12-09] MEDS: FERROUS SULFATE 325 MG TAB PO SCH (07:47)
[2019-12-09] MEDS: LORATADINE 10 MG TAB PO SCH (07:47)
[2019-12-09] MEDS: CLOTRIMAZOLE 1% CREAM 15 GM TUBE TOPICAL SCH (07:48)
[2019-12-09] MEDS ORDERED: BISACODYL 5 MG TABLET.DR PO PRN (08:00)
[2019-12-09] MEDS ORDERED: NICOTINE 14MG/24HR PATCH TRANSDERM SCH (09:00)
[2019-12-09] MEDS: LORazepam 2 MG/ML INJ IV PRN ×2 (14:05→23:48)
--- NOTE | 2019-12-09 16:07 | PN ---
PROGRESS NOTE DATE OF SERVICE: 12/09/2019 REASON FOR FOLLOWUP: Urinary tract infection. INTERVAL HISTORY: The patient is currently afebrile. The patient remains slightly weak and lethargic. No chest pain. No cough. No abdominal pain or any diarrhea. Still having hematuria. PHYSICAL EXAMINATION: Blood pressure 101/60 with a pulse of 62, temperature 98.3. He is 98% on room air. General description is an elderly male lying in bed in no distress. RESPIRATORY SYSTEM: Unlabored breathing. Clear to auscultation anteriorly. HEART: S1, S2. Regular rate and rhythm. ABDOMEN: Soft. No tenderness. LABS: No new labs have been obtained today. Urine culture is currently pending. DIAGNOSTIC IMPRESSION AND PLAN: Patient admitted to hospital with generalized weakness, no energy, with concern about possible catheter-associated urinary tract infection in this patient who did have significant hematuria. The patient is currently covered Rocephin; to continue while waiting for the culture to finalize. Continue with supportive care. MMODL / IJN: [id number] /
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
[2019-12-09] MEDS: traZODone HCL 50 MG TAB PO SCH (19:48)
[2019-12-09] MEDS: DIVALPROEX ER 250 MG TAB.ER.24H PO SCH (19:49)
[2019-12-09] MEDS: PALIPERIDONE 1.5 MG PO SCH (19:58)
[2019-12-10] MEDS: SODIUM CHLORIDE 0.9% 1,000 ML IV SCH ×3 (06:06→13:47)
[2019-12-10] MEDS: ASPIRIN 81 MG PO SCH (09:05)
[2019-12-10] MEDS: PARoxetine 20 MG TAB PO SCH (09:05)
[2019-12-10] MEDS: SENNOSIDES-DOCUSATE SODIUM 1 EACH TAB PO SCH (09:05)
[2019-12-10] MEDS: LORATADINE 10 MG TAB PO SCH (09:06)
[2019-12-10] MEDS: clonazePAM 1 MG TAB PO SCH ×4 (09:06→21:12)
[2019-12-10] MEDS: TOPIRAMATE 100 MG TAB PO SCH ×3 (09:06→21:12)
[2019-12-10] MEDS: ATORVASTATIN 20 MG TAB PO SCH (09:06)
[2019-12-10] MEDS: LACOSAMIDE 50 MG TABLET PO SCH ×2 (09:06→21:12)
[2019-12-10] MEDS: FERROUS SULFATE 325 MG TAB PO SCH (09:07)
[2019-12-10] MEDS: NICOTINE 14MG/24HR PATCH TRANSDERM SCH (09:07)
[2019-12-10] MEDS: CLOTRIMAZOLE 1% CREAM 15 GM TUBE TOPICAL SCH (09:08)
[2019-12-10] MEDS: PALIPERIDONE 3 MG TAB.ER.24 PO SCH ×2 (09:58→21:13)
--- NOTE | 2019-12-10 12:32 | PN ---
PROGRESS NOTE DATE OF SERVICE: 12/10/2019 REASON FOR FOLLOWUP: Urinary tract infection. INTERVAL HISTORY: The patient is currently afebrile. He seems slightly more awake and alert. Did mention feeling okay. No chest pain. No cough, no abdominal pain, no diarrhea. PHYSICAL EXAMINATION: Blood pressure 106/63 with a pulse of 55, temperature 97.9, he is 97% on room air. General description is an elderly male, up in the chair in no distress. RESPIRATORY SYSTEM: Unlabored breathing, clear to auscultation anteriorly. HEART: S1, S2. Regular rate and rhythm. ABDOMEN: Soft, no tenderness. LABS: Urine showing a Gram-negative. DIAGNOSTIC IMPRESSION AND PLAN: Patient admitted to hospital with weakness which is likely multifactorial with possible component of catheter associated urinary tract infection. Patient hematuria seemed to have resolved. Urine showing gram-negative covered with Rocephin to continue while waiting for the culture to finalize. Continue supportive care. MMODL / IJN: [id number] /
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
[2019-12-10 15:20] VITALS: BMI 24.4
[2019-12-10] MEDS: LORazepam 2 MG/ML INJ IV PRN (15:59)
[2019-12-10] MEDS: traZODone HCL 50 MG TAB PO SCH (21:13)
[2019-12-10] MEDS: DIVALPROEX ER 250 MG TAB.ER.24H PO SCH (21:13)
[2019-12-10] MEDS: PALIPERIDONE 1.5 MG PO SCH (21:15)
[2019-12-11] MEDS: LORazepam 2 MG/ML INJ IV PRN (03:01)
[2019-12-11] MEDS: LACOSAMIDE 50 MG TABLET PO SCH ×2 (07:09→20:23)
[2019-12-11] MEDS: LORATADINE 10 MG TAB PO SCH (07:09)
[2019-12-11] MEDS: PARoxetine 20 MG TAB PO SCH (07:09)
[2019-12-11] MEDS: ATORVASTATIN 20 MG TAB PO SCH (07:09)
[2019-12-11] MEDS: FERROUS SULFATE 325 MG TAB PO SCH (07:09)
[2019-12-11] MEDS: ASPIRIN 81 MG PO SCH (07:09)
[2019-12-11] MEDS: TOPIRAMATE 100 MG TAB PO SCH ×3 (07:09→20:19)
[2019-12-11] MEDS: SENNOSIDES-DOCUSATE SODIUM 1 EACH TAB PO SCH (07:09)
[2019-12-11] MEDS: clonazePAM 1 MG TAB PO SCH ×4 (07:09→20:19)
[2019-12-11] MEDS: PALIPERIDONE 3 MG TAB.ER.24 PO SCH ×2 (07:09→20:20)
[2019-12-11] MEDS: NICOTINE 14MG/24HR PATCH TRANSDERM SCH (07:10)
[2019-12-11] MEDS: CLOTRIMAZOLE 1% CREAM 15 GM TUBE TOPICAL SCH (07:10)
[2019-12-11] MEDS: SODIUM CHLORIDE 0.9% 1,000 ML IV SCH (07:10)
[2019-12-11 08:16] LABS: HCT 35.1 % (39.0-53.0); Hypochromasia Slight; MCH 27.5 pg (25.0-35.0); MCHC 31.4 g/dL (31.0-37.0); MCV 87.4 fL (80.0-100.0); Mean Platelet Volume 8.4; Platelet Count 204 k/uL (150-450); RBC 4.01 m/uL (4.30-5.90); RDW 14.8 % (11.5-15.5); WBC 8.2 k/uL (3.8-10.6)
[2019-12-11 08:30] LABS: African American GFR (CKD) >90 (>60 ml/min/1.73 sqM); Anion Gap 5 mmol/L; Blood Urea Nitrogen 9 mg/dL (9-20); Calcium 8.4 mg/dL (8.4-10.2); Carbon Dioxide 21 mmol/L (22-30); Chloride 118 mmol/L (98-107); Glucose 100 mg/dL (74-99); Non-African American GFR(CKD) >90 (>60 ml/min/1.73 sqM); Potassium 4.1 mmol/L (3.5-5.1); Sodium 144 mmol/L (137-145)
[2019-12-11 10:22] LABS: Topiramate 22.4 ug/mL (2.0-20.0)
--- NOTE | 2019-12-11 13:01 | P.PN ---
Progress Note - Text Progress Note Date: 12/11/19 The patient's hematuria has cleared, as the SP tube is draining clear yellow urine. The SP tube will be changed. No urologic evaluation is warranted. His preliminary urine culture shows gram-negative bacilli, and once the culture was completed it would be reasonable to treat this with an appropriate course of antibiotics. Please notify us if we can be of any further assistance.
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
[2019-12-11] MEDS ORDERED: traZODone HCL 100 MG TAB PO SCH (20:00)
[2019-12-11] MEDS: DIVALPROEX ER 250 MG TAB.ER.24H PO SCH (20:19)
[2019-12-11] MEDS: PALIPERIDONE 1.5 MG PO SCH (20:21)
[2019-12-11] MEDS: CEFEPIME 2 GM in SODIUM CHLORIDE 0.9% 100 ML IVPB SCH (23:07)
--- NOTE | 2019-12-11 23:55 | PN ---
PROGRESS NOTE DATE OF SERVICE: 12/11/2019 REASON FOR FOLLOWUP: Catheter-associated urinary tract infection. INTERVAL HISTORY: The patient is currently afebrile. The patient is hemodynamically stable. He remains to be sleepy, lethargic and no distress. PHYSICAL EXAMINATION: His blood pressure is 102/68 with a pulse of 50, temperature 98.1. He is 98% on room air. General description is an elderly male in bed in no distress. LABS: Hemoglobin is 11, white count 8.2, BUN of 9, creatinine 0.77. Urine has been finalized with Pseudomonas and Morganella. DIAGNOSTIC IMPRESSION AND PLAN: Patient with catheter-associated urinary tract infection admitted to the hospital with mental status changes. Culture now showing Pseudomonas and Morganella. We will switch antibiotic therapy to cefepime 2 grams q.12 with a plan to finish therapy with oral antibiotic and monitor clinical course closely. Rocephin discontinued. MMODL / CAMILLEN: [id number] /
[2019-12-12 08:53] VITALS: BP 134/77; PULSE 64; RESP 16; TEMP 98.1
[2019-12-12] MEDS ORDERED: TOPIRAMATE 100 MG TAB PO SCH (09:00)
[2019-12-12] MEDS: LORATADINE 10 MG TAB PO SCH (09:23)
[2019-12-12] MEDS: LACOSAMIDE 50 MG TABLET PO SCH (09:23)
[2019-12-12] MEDS: clonazePAM 1 MG TAB PO SCH (09:23)
[2019-12-12] MEDS: ATORVASTATIN 20 MG TAB PO SCH (09:23)
[2019-12-12] MEDS: PARoxetine 20 MG TAB PO SCH (09:23)
[2019-12-12] MEDS: ASPIRIN 81 MG PO SCH (09:23)
[2019-12-12] MEDS: SENNOSIDES-DOCUSATE SODIUM 1 EACH TAB PO SCH (09:23)
[2019-12-12] MEDS: FERROUS SULFATE 325 MG TAB PO SCH (09:23)
[2019-12-12] MEDS: NICOTINE 14MG/24HR PATCH TRANSDERM SCH (09:24)
[2019-12-12] MEDS: CLOTRIMAZOLE 1% CREAM 15 GM TUBE TOPICAL SCH (09:24)
[2019-12-12] MEDS: CEFEPIME 2 GM in SODIUM CHLORIDE 0.9% 100 ML IVPB SCH (09:26)
[2019-12-12] MEDS: PALIPERIDONE 3 MG TAB.ER.24 PO SCH (09:26)
[2019-12-12 10:12] LABS: HCT 34.3 % (39.0-53.0); HGB 10.9 gm/dL (13.0-17.5); MCH 27.4 pg (25.0-35.0); MCHC 31.6 g/dL (31.0-37.0); MCV 86.6 fL (80.0-100.0); Platelet Count 225 k/uL (150-450); RBC 3.96 m/uL (4.30-5.90); RDW 14.9 % (11.5-15.5); WBC 7.5 k/uL (3.8-10.6)
[2019-12-12 10:22] LABS: African American GFR (CKD) >90 (>60 ml/min/1.73 sqM); Anion Gap 6 mmol/L; Blood Urea Nitrogen 11 mg/dL (9-20); Calcium 8.5 mg/dL (8.4-10.2); Carbon Dioxide 21 mmol/L (22-30); Chloride 115 mmol/L (98-107); Glucose 102 mg/dL (74-99); Non-African American GFR(CKD) >90 (>60 ml/min/1.73 sqM); Potassium 4.1 mmol/L (3.5-5.1); Sodium 142 mmol/L (137-145)
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
--- NOTE | 2019-12-12 12:14 | PN ---
PROGRESS NOTE DATE OF SERVICE: 12/12/2019 REASON FOR FOLLOWUP: Catheter associated urinary tract infection. INTERVAL HISTORY: The patient is currently afebrile. The patient is breathing comfortably. The patient is back to his baseline per the caregiver at the bedside. No vomiting or diarrhea or any other changes. Clinical condition has been reported by nursing staff. PHYSICAL EXAMINATION: Blood pressure 134/77 with a pulse of 64, temperature 98.1, he is 96% on room air. General description is a middle-aged male up in the chair in no distress. RESPIRATORY SYSTEM: Unlabored breathing, clear to auscultation anteriorly. HEART S1, S2. Regular rate and rhythm. ABDOMEN: Soft, no tenderness. LABS: Hemoglobin is 10.8, white count of 7.5, BUN of 11, creatinine 0.77. DIAGNOSTIC IMPRESSION AND PLAN: Patient with catheter associated urinary tract infection, urine Pseudomonas and Morganella, has received 2 days of IV cefepime, antibiotic switched over to Cipro 500 mg twice a day for 7 days to finish a course of therapy. Continue supportive care. MMBREEL / CAMILLEN: [id number] /
== END 2019-12-12 11:40 | disposition home health service (06) | DRG 698 ==
LOC: EC 13:54 → 4SSUR 16:00 → OBSVTOIN 12-10 09:44
PROVIDERS: ADMIT Internal Medicine; ATTEND Internal Medicine
DX: T83.518A Infection and inflammatory reaction due to other urinary catheter, initial encounter (principal); A41.50 Gram-negative sepsis, unspecified; G93.41 Metabolic encephalopathy; N39.0 Urinary tract infection, site not specified; N13.9 Obstructive and reflux uropathy, unspecified; N31.9 Neuromuscular dysfunction of bladder, unspecified; R31.0 Gross hematuria; Z87.820 Personal history of traumatic brain injury; F03.90 Unspecified dementia, unspecified severity, without behavioral disturbance, psychotic disturbance, mood disturbance, and anxiety; S06.9X0S Unspecified intracranial injury without loss of consciousness, sequela; V49.9XXS Car occupant (driver) (passenger) injured in unspecified traffic accident, sequela; Y84.6 Urinary catheterization as the cause of abnormal reaction of the patient, or of later complication, without mention of misadventure at the time of the procedure; Z79.1 Long term (current) use of non-steroidal anti-inflammatories (NSAID); Z79.82 Long term (current) use of aspirin; Z79.899 Other long term (current) drug therapy; Z80.1 Family history of malignant neoplasm of trachea, bronchus and lung; Z80.51 Family history of malignant neoplasm of kidney; Z85.828 Personal history of other malignant neoplasm of skin; X58.XXXA Exposure to other specified factors, initial encounter; Z87.440 Personal history of urinary (tract) infections; Z20.828 Contact with and (suspected) exposure to other viral communicable diseases; F17.210 Nicotine dependence, cigarettes, uncomplicated; G40.909 Epilepsy, unspecified, not intractable, without status epilepticus; Z87.828 Personal history of other (healed) physical injury and trauma; Z88.0 Allergy status to penicillin; F41.9 Anxiety disorder, unspecified; F32.9 Major depressive disorder, single episode, unspecified; M19.90 Unspecified osteoarthritis, unspecified site
CPT/HCPCS: 36415; 70450; 71046; 80048; 80053; 80164; 80201; 80299; 80339; 81001; 83605; 83735; 84484; 85025; 85027; 85610; 85730; 87040; 87077; 87086; 87186; 93005; 96361; 96374; 96375; 99285